=== PATIENT | male | born 1950 | race American Indian/Alaskan Native ===

== ENCOUNTER 2018-01-13 06:39 | Day surgery (SDC) | payer MEDICARE, BC ==
[2018-01-06 10:41] VITALS: BMI 30.2
[2018-01-13] MEDS ORDERED: Etomidate 20 mg/10ml Inj IV ONE (07:48)
[2018-01-13] MEDS ORDERED: Propofol 10 mg/ml Inj (20 ML) ONE ×2 (07:48→07:58)
[2018-01-13] MEDS ORDERED: Phenylephrine 10 mg/ml Inj ONE (07:50)
[2018-01-13] MEDS ORDERED: Lactated Ringer's 1,000 ML IV SCH (08:45)
[2018-01-13 09:36] VITALS: BP 144/76; PULSE 73; RESP 20; TEMP 97.8; O2SAT 99
== END 2018-01-13 10:06 | disposition home or self-care (01) ==
LOC: ENDO 06:39
PROVIDERS: ATTEND Specialist
DX: Z12.11 Encounter for screening for malignant neoplasm of colon (principal); D12.3 Benign neoplasm of transverse colon; K57.30 Diverticulosis of large intestine without perforation or abscess without bleeding; K64.8 Other hemorrhoids; I10 Essential (primary) hypertension; Z86.010 Personal history of colon polyps
CPT/HCPCS: 45385; 88305; J2001; J2370; J2704; J7120